=== PATIENT | female | born 1965 | race Caucasian/White ===

== ENCOUNTER 2016-08-03 06:28 | Day surgery (SDC) | payer BC ==
[~2016-08-03] VITALS: Ht 165.1 cm; Wt 70.3 kg
[~2016-08-03 06:28] MED LIST: AMOXICILLIN500 MG PO; CVS IBUPROFEN PO; EQ IBUPROFEN200 MG OR; FERROUS SULF325 M3 PO; FLEXERIL OR; NAPROSYN500 MG PO; NORCO1 TA1 PO; ULTRAM50 M1 OR; ZOFRAN4 MG/TAB PO
[2016-08-03 10:23] VITALS: BP 145/81
== END 2016-08-03 11:45 | disposition home or self-care (01) | DRG 745 ==
LOC: ORM 06:28
PROVIDERS: ATTEND Obstetrics & Gynecology
PROC: 0UDB8ZX Extraction of Endometrium, Via Natural or Artificial Opening Endoscopic, Diagnostic (ICD-10-PCS; principal; 2016-08-03)
DX: N92.1 Excessive and frequent menstruation with irregular cycle (principal); D25.9 Leiomyoma of uterus, unspecified; N94.6 Dysmenorrhea, unspecified; D64.9 Anemia, unspecified; N83.202 Unspecified ovarian cyst, left side; F17.210 Nicotine dependence, cigarettes, uncomplicated

== ENCOUNTER 2017-06-22 09:25 | Day surgery (SDC) | payer BC ==
[~2017-06-22] VITALS: Ht 165.1 cm; Wt 67.1 kg
[~2017-06-22 09:25] MED LIST changes: +DIFLUCAN100 MG PO; +LIPOZENE PO; +SINGULAIR10 MG PO
[2017-06-22 12:51] VITALS: BP 159/82
== END 2017-06-22 12:40 | disposition home or self-care (01) | DRG 951 ==
LOC: ENDO 09:25
PROVIDERS: ATTEND Surgery
PROC: 0DBP8ZX Excision of Rectum, Via Natural or Artificial Opening Endoscopic, Diagnostic (ICD-10-PCS; principal; 2017-06-22)
DX: Z12.11 Encounter for screening for malignant neoplasm of colon (principal); D12.8 Benign neoplasm of rectum; Q43.8 Other specified congenital malformations of intestine

== ENCOUNTER 2017-08-27 09:18 | Emergency (ER) | payer BC ==
[~2017-08-27] VITALS: Ht 165.1 cm; Wt 68.1 kg
[2017-08-27] MEDS ORDERED: MECLIZINE HCL25 MG PO (09:31)
[2017-08-27] MEDS ORDERED: FLEXERIL PO (09:53)
[2017-08-27] MEDS ORDERED: TORADOL PO (09:53)
[2017-08-27 10:05] VITALS: BP 112/82
== END 2017-08-27 10:05 | disposition home or self-care (01) | DRG 563 ==
LOC: ED 09:18
DX: S29.012A Strain of muscle and tendon of back wall of thorax, initial encounter (principal); F17.210 Nicotine dependence, cigarettes, uncomplicated; X50.0XXA Overexertion from strenuous movement or load, initial encounter; Y93.89 Activity, other specified; Y92.009 Unspecified place in unspecified non-institutional (private) residence as the place of occurrence of the external cause

== ENCOUNTER 2018-06-07 10:51 | Emergency (ER) | payer BC ==
[~2018-06-07] VITALS: Ht 165.1 cm; Wt 68.2 kg
[~2018-06-07 10:51] MED LIST changes: +FLEXERIL PO; +MECLIZINE HCL25 MG PO; +TORADOL PO
[2018-06-07 11:41] VITALS: BP 156/97
[2018-06-07] MEDS ORDERED: VOLTAREN - GENE75 MG PO (12:17)
== END 2018-06-07 12:48 | disposition home or self-care (01) | DRG 563 ==
LOC: ED 10:51
DX: S46.911A Strain of unspecified muscle, fascia and tendon at shoulder and upper arm level, right arm, initial encounter (principal); F17.210 Nicotine dependence, cigarettes, uncomplicated; X50.0XXA Overexertion from strenuous movement or load, initial encounter; Y93.89 Activity, other specified

== ENCOUNTER 2018-11-17 14:11 | Emergency (ER) | payer BC ==
[~2018-11-17] VITALS: Ht 165.1 cm; Wt 65.0 kg
[~2018-11-17 14:11] MED LIST changes: +VOLTAREN - GENE75 MG PO
[2018-11-17] MEDS ORDERED: VENTOLIN HFA IN (15:42)
[2018-11-17] MEDS ORDERED: TESSALON PER100 MG PO (15:42)
[2018-11-17 16:14] VITALS: BP 131/73
== END 2018-11-17 16:14 | disposition home or self-care (01) | DRG 204 ==
LOC: ED 14:11
DX: R05 Cough (principal); R19.7 Diarrhea, unspecified; F17.200 Nicotine dependence, unspecified, uncomplicated